=== PATIENT | male | born 1995 | race Caucasian/White ===

== ENCOUNTER 2025-01-07 19:21 | Emergency (ER) | payer SELFPAY ==
[2025-01-07 19:27] VITALS: BP 131/76; PULSE 85; TEMP 36.8; O2SAT 99; BMI 24.4
--- NOTE | 2025-01-07 19:41 | ED_ITS ---
HPI - Medical Clearance General Chief complaint: Medical Clearance Stated complaint: withdrawal from medication Time Seen by Provider: 01/07/25 19:26 Source: patient Mode of arrival: walk-in Limitations: no limitations History of Present Illness HPI Narrative: 29-year-old male to the emergency department chief complaint of withdrawal symptoms after abruptly discontinuing his Paxil and Remeron. Patient reports he was unable to schedule a follow-up visit with his doctor. His prescription ran out. He had no choice but to stop his medications due to running out. He reports a few days after discontinuing he began to develop some mild dizziness, hot flashes and nausea. He is otherwise at his baseline health. He is hoping to restart his prescriptions. Related Information Previous Rx's ?Medication ?Instructions ?Recorded mirtazapine 15 mg tablet 15 mg PO DAILY #30 tabs 01/07/25 paroxetine HCl 20 mg tablet (Paxil) 20 mg PO DAILY #30 tabs 01/07/25 Allergies Allergy/AdvReac Type Severity Reaction Status Date / Time shellfish derived Allergy Intermediate Rash Verified 01/07/25 19:30 Review of Systems ROS Status of ROS 10 or more systems reviewed and unremark able except as noted in history and below PFSH PFSH Social History Little interest or pleasure in doing things: not at all Feeling down, depressed, or hopeless: not at all Exam Narrative Exam Narrative: VITALS: I have reviewed the triage vital signs. GENERAL: Well developed, well appearing adult in no acute distress. NEURO: Alert and oriented. Moves all extremities. Face is symmetric and expre ssive. EYES: PERRL. No scleral icterus or conjunctival injection. No discharge. HENT: Normocephalic, atraumatic. Hearing is grossly intact. Nares grossly patent and without discharge. Mucous membranes moist. NECK: No JVD. Patient moves neck without restriction. CARDIO: Rhythm regular. Normal rate. No murmur, rub, or gallop. Pulses equal bilaterally in the upper and lower extremity. No lower extremity edema. PULM: Lungs clear to auscultation in all lee. No wheezes, rales, or rhonchi. No conversational dyspnea. No splinting, stridor, or accessory muscle use. GI/: Abdomen is soft and non-tender. Normoactive bowel sounds. EXTREMITIES: Symmetric muscle bulk. No joint swelling. No clubbing, cyanosis, or deformity. SKIN: Warm and dry. Normal turgor. No rash or lesions appreciated. PSYCH: Mood, affect, and interaction is appropriate to the setting. Constitutional Vital Signs, click to edit/add: Last Vital Signs Temp 98.2 F 01/07/25 19:27 Pulse 85 01/07/25 19:27 Resp 16 01/07/25 19:27 BP 131/76 01/07/25 19:27 Pulse Ox 99 01/07/25 19:27 O2 Del Method Room Air 01/07/25 19:27 Course Vital Signs Vital signs: Vital Signs Temperature 98.2 F 01/07/25 19:27 Pulse Rate 85 01/07/25 19:27 Respiratory Rate 16 01/07/25 19:27 Blood Pressure 131/76 01/07/25 19:27 Pulse Oximetry 99 01/07/25 19:27 Oxygen Delivery Method Room Air 01/07/25 19:27 Temperature 98.2 F 01/07/25 19:27 Pulse Rate 85 01/07/25 19:27 Respiratory Rate 16 01/07/25 19:27 Blood Pressure 131/76 01/07/25 19:27 Pulse Oximetry 99 01/07/25 19:27 Oxygen Delivery Method Room Air 01/07/25 19:27 MDM - Medical Clearance MDM Narrative Medical decision making narrative: Well-appearing 29-year-old male to the emergency department with chief complaint of withdrawal symptoms after sudden discontinuation of his Paxil and Remeron. Vital stable, the patient is afebrile. His neurologic examination nonfocal. He is not complaining of any psychiatric complaints. He is requesting a refill of his medications. I believe this is reasonable. 30-day supply is given. prescription resent to his pharmacy. First dose is given in the ED. Return precautions were discussed. All questions were answered. The patient was discharged home. Medical Records Attestation: I reviewed the patient's medical records. Discharge Plan Discharge Chief Complaint: Medical Clearance Clinical Impression: Medication withdrawal Patient Disposition: Home, Self-Care Time of Disposition Decision: 19:36 Condition: Good Mode of Transportation: Private Vehicle Prescriptions / Home Meds: New paroxetine HCl [Paxil] 20 mg tablet 20 mg PO DAILY Qty: 30 0RF mirtazapine 15 mg tablet 15 mg PO DAILY Qty: 30 0RF Print Language: Welsh Instructions: Medicine Refill (ED) Additional Instructions: Call the office of your primary care doctor to arrange for follow-up within the above-stated timeframe. Your ED visit was focused on your acute issue and does not replace primary care. You should review your labs, imaging, and diagnoses from this ED visit with your primary care physician. There may be non-emergent/ incidental findings that need further evaluation. You should review your vital signs including blood pressure with your PCP. If you were prescribed medications you should discuss possible side-effects and drug interactions with your pharmacist. Call 911 or go to the nearest Emergency Department if you develop any new or worsening symptoms. Avoid abrupt discontinuation of your medications. This can lead to withdrawal symptoms. Should you wish to discontinue these medications you will need to taper down the dose. You were given a 30-day supply of these medications. Follow-up with your doctor within the next 30 days to continue your script. Referrals: Alan Conrad DO [Primary Care Provider] - 1 week
[2025-01-07] MEDS: PAROXETINE HCL 20 MG TABLET PO (19:53)
[2025-01-07] MEDS: MIRTAZAPINE 15 MG TABLET PO (19:53)
== END 2025-01-07 19:54 | disposition home or self-care (01) ==
PROVIDERS: Emergency Provider Student in an Organized Health Care Education/Training Program; PCP Student in an Organized Health Care Education/Training Program
DX: F19.239 Other psychoactive substance dependence with withdrawal, unspecified (principal)
CPT/HCPCS: 99283

== ENCOUNTER 2025-04-15 17:19 | Emergency (ER) | payer SELFPAY ==
--- OUTSIDE RECORDS SUMMARY | 2024-12-06 05:30 | XMS_ITS ---
Author Organization [facility] Address [address] [place] [address] Care Team Providers Care Aquatics Director Name Role Phone Alan Conrad Primary Care Provider REASON FOR VISIT med check Encounters Encounter Location Date Provider Diagnosis [facility] [address] [place] [address] 12/06/2024 Alan Conrad Plan Of Treatment No Information Progress Notes * SASCHA RAM LDOB: [birth year] (29 yo M)Acc No.[id number]:12/06/2024 Progress Notes Patient: Ayana [address] Provider: Amado Conrad :1995 A ge:29 Y S ex:Male Date:12/06/2024 Address:[address], [place], [id number] Subjective: * Chief Complaints: * 1 . Med check. * Medical History: Objective: * Vitals: Assessment: Plan: * Treatment: * Images: * Electronic signature of Taj Conrad DO on 04/15/2025 at 05:25 PM EDT Sign off status: Pending * Provider: Amado Conrad Date: 12/06/2024 Generated for Adelei ng/Faxing/eTransmitting on: 0 04/15/2025 05:25 PM EDT
--- OUTSIDE RECORDS SUMMARY | 2024-12-07 06:45 | XMS_ITS ---
Author Organization [facility] Address [address] [place] [address] Care Team Providers Care Qa Test Lead Name Role Phone Alan Conrad Primary Care Provider REASON FOR VISIT MED F/U Encounters Encounter Location Date Provider Diagnosis [facility] [address] [place] [address] 12/07/2024 Alan Conrad Plan Of Treatment No Information Progress Notes * SASCHA RAM LDOB: [birth year] (29 yo M)Acc No.[id number]:12/07/2024 Progress Notes Patient: Ayana ROMANS[address] .1 Provider: Amado Conrad :1995 A ge:29 Y S ex:Male Date:12/07/2024 Address:[address], [place], [id number] Subjective: * Chief Complaints: * 1 . MED F/U. * Medical History: Objective: * Vitals: Assessment: Plan: * Treatment: * Images: * Electronic signature of Taj Conrad DO on 04/15/2025 at 05:25 PM EDT Sign off status: Pending * Provider: Amado Conrad Date: 0 12/07/2024 Generated for Adelei ng/Faxing/eTransmitting on: 0 04/15/2025 05:25 PM EDT
[2025-04-15 17:23] VITALS: BP 144/107; PULSE 100; TEMP 36.6; O2SAT 97; BMI 21.5
--- OUTSIDE RECORDS SUMMARY | 2025-04-15 17:26 | XMS_ITS | CCD ---
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 Negative Negative [facility] Protein [Mass/volume] in Ser um or PlasmaOrdered By: Roney Maria on 10-04-2023 Protein [Mass/Vol] 6.5 g/dL 6.4-8.9 [facility] RBC Auto (Bld) [#/Vol]Ordere d By: Roney Maria on 10-04-2023 RBC (Bld) [#/Vol] 5.09 10*6/uL 3.90-5.60 [facility] Serum or plasma albumin/glob ulin mass ratioOrdered By: Roney Maria on 10-04-2023 Albumin/Globulin [Mass ratio] 1.8 {ratio} [facility] Serum or plasma anion gap de terminationOrdered By: Roney Maria on 10-04-2023 Anion gap [Moles/Vol] 11.3 mmol/L 6.0-15.0 [facility] Serum or plasma non-glucuron idated bilirubin measurement (mass/volume)Ordered By: Roney Maria on 10-04-2023 Bilirubin.indirect [Mass/Vol] 0.4 mg/dL [facility] Sodium [Moles/volume] in Ser um or PlasmaOrdered By: Roney Maria on 10-04-2023 Sodium [Moles/Vol] 140 mmol/L 136-145 [facility] Specific gravity Auto test s trip (U) [Rel density]Ordered By: Roney Maria on 10-04-2023 Specific gravity (U) [Rel density] 1.012 1.001-1.030 [facility] Urea nitrogen [Mass/volume] in Serum or PlasmaOrdered By: Roney Maria on 10-04-2023 Urea nitrogen [Mass/Vol] 10 mg/dL 7- [facility] Urine clarity by refractomet ry automatedOrdered By: Roney Maria on 10-04-2023 Clarity Refractometry automated (U) Clear Clear [facility] Urine glucose measurement by automated test strip (mass/volume)Ordered By: Roney Maria on 10-04-2023 Glucose Auto test strip (U) [Mass/Vol] Normal mg/dL Normal [facility] Urine hemoglobin detection b y automated test stripOrdered By: Roney Maria on 10-04-2023 Hemoglobin Auto test strip Ql (U) Negative Negative [facility] Urine leukocyte esterase det ection by automated test stripOrdered By: Roney Maria on 10-04-2023 Leukocyte esterase Auto test strip Ql (U) Negative Negative [facility] Urobilinogen Auto test strip (U) [Mass/Vol]Ordered By: Roney Maria on 10-04-2023 Urobilinogen (U) [Mass/Vol] Normal mg/dL Normal [facility] WBC Auto (Bld) [#/Vol]Ordere d By: Roney Maria on 10-04-2023 WBC (Bld) [#/Vol] 9.9 10*3/uL 4.1-10.5 [facility] pH Auto test strip (U)Ordere d By: Roney Maria on 10-04-2023 pH (U) 5.5 [pH] 5.0-9.0 [facility] Vital Signs Date Time Vital Sign Value Performing Clinician Jameel damon 02-26-2025 16:30-0400 Body height 177.8 cm PHYSICIAN NO [facility] 02-26-2025 16:30-0400 Body temperature 98.4 [degF] PHYSICIAN NO [facility] 02-26-2025 16:30-0400 Body weight 72 kg PHYSICIAN NO [facility] 02-26-2025 16:30-0400 Diastolic blood pressure 64 mm[Hg] PHYSICIAN NO [facility] 02-26-2025 16:30-0400 Heart rate 90 /min PHYSICIAN NO [facility] 02-26-2025 16:30-0400 Respiratory rate 18 /min PHYSICIAN NO [facility] 02-26-2025 16:30-0400 SaO2% (BldA) [Mass fraction] 98 % PHYSICIAN NO [facility] 02-26-2025 16:30-0400 Systolic blood pressure 123 mm[Hg] PHYSICIAN NO [facility] 10-06-2023 10:24-0500 Diastolic blood pressure 64 mm[Hg] PHYSICIAN NO [facility] 10-06-2023 10:24-0500 Heart rate 62 /min PHYSICIAN NO [facility] 10-06-2023 10:24-0500 SaO2% (BldA) [Mass fraction] 100 % PHYSICIAN NO [facility] 10-06-2023 10:24-0500 Systolic blood pressure 108 mm[Hg] PHYSICIAN NO [facility] 10-06-2023 08:01-0500 Body temperature 97.8 [degF] PHYSICIAN NO [facility] 10-06-2023 08:01-0500 Respiratory rate 18 /min PHYSICIAN NO [facility] 10-06-2023 07:59-0500 Body height 177.8 cm PHYSICIAN NO [facility] 10-06-2023 07:59-0500 Body weight 68.9 kg PHYSICIAN NO [facility] 10-04-2023 04:30-0500 Diastolic blood pressure 57 mm[Hg] PHYSICIAN NO [facility] 10-04-2023 04:30-0500 Heart rate 66 /min PHYSICIAN NO [facility] 10-04-2023 04:30-0500 Respiratory rate 18 /min PHYSICIAN NO [facility] 10-04-2023 04:30-0500 SaO2% (BldA) [Mass fraction] 100 % PHYSICIAN NO [facility] 10-04-2023 04:30-0500 Systolic blood pressure 115 mm[Hg] PHYSICIAN NO [facility] 10-04-2023 01:21-0500 Body height 177.8 cm PHYSICIAN NO [facility] 11-26-2023 01:21-0500 Body temperature 98 [degF] PHYSICIAN NO [facility] 10-04-2023 01:21-0500 Body weight 70.9 kg PHYSICIAN NO [facility] 09-03-2022 19:44-0400 Body height 177.8 cm PHYSICIAN NO [facility] 09-03-2022 19:44-0400 Body temperature 98 [degF] PHYSICIAN NO [facility] 09-03-2022 19:44-0400 Body weight 70 kg PHYSICIAN NO [facility] 09-03-2022 19:44-0400 Diastolic blood pressure 64 mm[Hg] PHYSICIAN NO [facility] 09-03-2022 19:44-0400 Heart rate 68 /min PHYSICIAN NO [facility] 09-03-2022 19:44-0400 Respiratory rate 16 /min PHYSICIAN NO [facility] 09-03-2022 19:44-0400 SaO2% (BldA) [Mass fraction] 96 % PHYSICIAN NO [facility] 09-03-2022 19:44-0400 Systolic blood pressure 119 mm[Hg] PHYSICIAN NO [facility] Encounters Encounter Date Encounter Type Care Provider Facility Start: 02-26-2025 End: 02-26-2025 Emergency department patient visit PHYSICIAN NO [facility] Work Phone: Start: 10-06-2023 End: 10-06-2023 Emergency department patient visit PHYSICIAN NO [facility] Work Phone: Start: 10-04-2023 End: 10-04-2023 Emergency department patient visit PHYSICIAN NO [facility] Work Phone: Start: 09-03-2022 End: 09-03-2022 Emergency department patient visit PHYSICIAN NO [facility] Start: 07-03-2020 Patient encounter status PHYSICIAN N O [facility] Procedures Date Procedure Procedure Detail Performing Clinician Start: 10-06-2023 SARS-CoV-2, Influenz a & RSV (PCR) PHYSICIAN NO [facility] Plan of Treatment Date Care Activity Detail Author Patient Education [facility] Work Phone: Patient referral [facility] Work Phone: Payers Date Payer Category Payer Self-pay [id number] Worker's Compensation [id number] Medicaid Medicaid [id number] Medicaid [id number] Private Health Insurance [facility] [id number] Private Health Insurance [id number] Private Health Insurance [employer] [id number] Private Health Insurance [id number] Unknown Regular Auto/Liability [id number] Unknown [id number] Social History Date Type Detail Facility Start: 09-03-2022 End: 10-06-2023 Tobacco smoking status NHIS Never smoked tobacco (finding) [facility] Start: 1995 Sex Assigned At Male F [facility] Start: 10-04-2023 [facility] Start: 02-26-2025 Tobacco smoking stat [facility] Ex-smoker (finding) [facility] Start: 02-26-2025 Sex Male (finding) [facility] Evaluation note Note Date & Type Note Facility Evaluation note No assessment information availa ble [facility] Work Phone: Hospital Discharge instructions Note Date & Type Note Facility Hospital Discharge instructions Additional Instructions Take Carafate as prescribed for abdominal discomfort Zofran as prescribed for nausea vomiting Imodium as described prescribed for diarrhea. Increase your intake of fluids and rest. Follow-up with the PCP for any persistent symptoms in 3 to 5 days. Return here for intractable nausea vomiting despite these measures. [facility] Work Phone: Hospital Discharge instructions Note Date & Type Note Facility Hospital Discharge instructions Additional Instructions If your symptoms return/worsen or you develop any further concerns or symptoms please see your doctor or return to the emergency department immediately. [facility] Work Phone: Hospital Discharge instructions Note Date & Type Note Facility Hospital Discharge instructions Additional Instructions Continue with family physician appointment as scheduled. It is very important that you follow up with your primary care provider in the next 2-3 days unless instructed to do otherwise. If you do not have a primary care provider, you can contact [facility] and ask about being established for primary care services. If you require specialist follow up, such as with an orthopedic physician, battery filler, urologist, or other medical specialty, you should contact the specialty clinic as soon as possible to schedule a follow up appointment. If you are established with a specialist, you can contact your preferred physician for follow up. If you are not already established with the specialist you need, you may have contact information provided to you with these discharge instructions. If you are being prescribed medications, take exactly as prescribed. Antibiotics, if prescribed, should be taken until the entire course is completed. You should not have left over antibiotics. Continue to take any previously prescribed home medications unless instructed otherwise. If you are experiencing fever or mild to moderate pain, you should first take Tylenol or ibuprofen available [id number]. Medications, if prescribed to treat pain from the emergency department, are intended to provide relief for severe pain that is not relieved by other methods of pain relief, you should use these medications cautiously as many are known to cause sedation/sleepiness, increased risk for falls, and other effects such as constipation. If your symptoms worsen please return to the ED or if you have any other concerns [facility] Work Phone: Chief Complaint and Reason for Visit Chief Complaint Med Refill Chief Complaint Nausea, Vomiting Chief Complaint Nausea, Vomiting n/v/d Chief Complaint Admit Date meds need refilled February 26, 2025 4:2 2pm Advance Directives No Advanced Directives Records Found Advance Directive Response Recorded Date/ Time Advance Directives No July 9:05am Advance Directive Response Recorded Date/ Time Advance Directives No July 8:05am Summary Purpose Family History No Family History Records Found Additional Source Comments Care Teams (unrecognized sec tion and content) Team Status: Inactive Member Role Status Dates PHYSICIAN NO FAMILY Primary Care Provider Active Chucho Shen PA-C Emergency Provider Active Team Status: Active Member Role Status Dates PHYSICIAN NO FAMILY Primary Care Provider Active Team Status: Inactive Member Role Status Dates PHYSICIAN NO FAMILY Primary Care Provider Active Roney Maria DO Emergency Provider Active Team Status: Active Member Role Status Dates Services [facility] Primary Care Provider Active Team Status: Inactive Member Role Status Dates Services [facility] Primary Care Provider Active Tylor Montez DO Emergency Provider Active Team Status: Inactive Member Role Status Dates PHYSICIAN NO FAMILY Primary Care Provider Active Start: February 26, 2025 End: February 26, 2025 Miguel Angel Jacobs PA-C Emergency Provider Active Start: February 26, 2025 End: February 26, 2025 Goals (unrecognized section and content) Goals may be documented in a n alternate sectionGoals may be documented in an alternate sectionGoals may be documented in an alternate sectionGoals may be documented in an alternate section (unrecognized sect ion and content) No Status Records Found INFORMATION SOURCE (unrecogn ized section and content) DATE CREATED AUTHOR 03/17/2025 [facility] FOR RECORDS PERTAINING TO PATIENTS WHO ARE OR HAVE BEEN ENROLLED IN A CHEMICAL DEPENDENCY/SUBSTANCEABUSE PROGRAM, SOME INFORMATION MAY BE OMITTED. This clinical summary was aggregated from multiple sources. Caution should be exercised in using it in the provision of clinical care. This summary normalizes information from multiple sources, and as a consequence, information in this document may materially change the coding, format and clinical context of patient data. In addition, data may be omitted in some cases. CLINICAL DECISIONS SHOULD BE BASED ON THE PRIMARY CLINICAL RECORDS. [facility]. provides no warranty or guarantee of the accuracy or completeness of information in this document.
--- NOTE | 2025-04-15 17:45 | ECG_ITS ---
[facility] Test Date: 2025-04-15 Pat Name: SASCHA RAM Department: Room: - Gender: Male Literature Teacher: : 1995 Requested By: [id number] Order Number: [id number] Reading MD: BAM JUNG M.D. Measurements Intervals [place] Rate: 69 P: 84 CA: 170 QRS: 94 QRSD: 88 T: 60 QT: 380 QTc: 399 Interpretive Statements 1100 Sinus rhythm 7102 Moderate right axis deviation 9110 normal ECG Compared to ECG 03/30/2017 06:50:57 Myocardial infarct finding no longer present Electronically Signed On 04-15-2025 18:48:58 EDT by BAM JUNG M.D.
[2025-04-15 17:47] LABS: Basophils Absolute Auto 0.1 10^3/uL (0.0-0.1); Basophils Percent Auto 0.8 % (0.2-2.0); Eosinophils Absolute Auto 0.2 10^3/uL (0.0-0.7); Hemoglobin 16.4 g/dL (14.0-18.0); Immature Granulocytes Abs Auto 0.04 10^3/uL (0.00-0.03); Immature Granulocytes Pct Auto 0.4 % (0.0-0.5); Lymphocytes Percent Auto 29.3 % (20.5-60.0); Mean Corpuscular HGB Conc 34.9 g/dL (29.9-35.2); Mean Corpuscular Hemoglobin 30.7 pg (25.9-34.0); Mean Corpuscular Volume 87.9 fL (80.0-94.0); Mean Platelet Volume 9.8 fL (9.5-13.5); Monocytes Absolute Auto 0.5 10^3/uL (0.3-0.8); Monocytes Percent Auto 4.8 % (1.7-12.0); Neutrophils Absolute Auto 6.4 10^3/uL (1.4-6.5); Neutrophils Percent Auto 62.7 % (43.0-75.0); Platelet Count 254 10^3/uL (150-450); Red Blood Count 5.35 10^6/uL (4.70-6.10); Red Cell Distribution Width 12.6 % (11.0-15.0); White Blood Count 10.2 10^3/uL (4.0-11.0)
[2025-04-15] MEDS: ONDANSETRON 4 MG RAPDIS TABLET SL (17:48)
[2025-04-15 18:02] LABS: Alanine Aminotransferase 26 U/L (16-63); Albumin Globulin Ratio 1.3; Albumin Level 3.9 g/dL (3.4-5.0); Alkaline Phosphatase 79 U/L (46-116); Anion Gap 13.1; Aspartate Amino Transferase 17 U/L (15-37); BUN Creatinine Ratio 11.1; Bilirubin Total 1.1 mg/dL (0.2-1.0); Calcium 8.8 mg/dL (8.5-10.1); Carbon Dioxide 29.6 mmol/L (21.0-32.0); Chloride 104 mmol/L (98-107); Estimated GFR (African America >60 (>=60 mL/min/1.73m^2); Estimated GFR (Non-African Ame >60 (>=60 mL/min/1.73m^2); Globulin 3.1 g/dL; Glucose 131 mg/dL (74-106); Potassium 3.7 mmol/L (3.5-5.1); Sodium 143 mmol/L (136-145)
--- NOTE | 2025-04-15 18:09 | ED.GENADUL1 ---
HPI HPI - General Adult General Chief complaint: Nausea/Vomiting/Diarrhea Stated complaint: VOMITING, SWEATING, REFILL MEDS Time Seen by Provider: 04/15/25 17:22 Source: patient Mode of arrival: walk-in Limitations: no limitations History of Present Illness HPI narrative: Patient is a 29-year-old male who presents to the emergency department today for evaluation of concerns for withdrawal symptoms related to prescription medications. He states he has a history of depression and a TBI and reports he has been on Paxil and mirtazapine. He reports these medications he ran out of the above medications 2 weeks ago and states his symptoms of nausea and intermittent vomiting with feeling diaphoretic began 2 to 3 days after. He denies any fever/chills, chest pain, shortness of breath, abdominal pain, or diarrhea. No urinary symptoms or back/flank pain. He is somewhat a confusing historian and states he moved from [place] 4 years ago but has not yet established primary care locally however mentions he has intermittently seen a provider in [place] that has refilled his medications. Additionally he mentions he has had his medications refilled in the ER. However he currently endorses he does not have established primary or behavioral health care at this time. He denies any SI/HI or hallucinations. Related Data Previous Rx's ?Medication ?Instructions ?Recorded mirtazapine 15 mg tablet 15 mg PO DAILY #30 tabs 01/07/25 paroxetine HCl 20 mg tablet (Paxil) 20 mg PO DAILY #30 tabs 01/07/25 Allergies Allergy/AdvReac Type Severity Reaction Status Date / Time shellfish derived Allergy Intermediate Rash Verified 04/15/25 17:23 Opioid HPI Opioid Management Most Recent Opioid Data: Ur Phencyclidine Scrn, (NEGATIVE) Negative Today, 18:40 Review of Systems ROS Status of ROS 10 or more systems reviewed and unremarkable except as noted in history and below PFSH PFSH Social History Little interest or pleasure in doing things: not at all Feeling down, depressed, or hopeless: not at all Exam Narrative Exam Narrative: Constituational: Awake/ alert, no apparent distress, well hydrated HENMT: normocephalic, external ears normal, moist oral mucous membranes and oropharynx normal Eyes: EOMI and conjunctivae normal Neck: ROM intact Chest: inspection of chest normal Respiratory: Normal respiratory effort, clear to auscultation bilaterally Cardio: regular rate and regular rhythm GI: soft to palpation and non-tender Back: nontender MSK: ROM intact, +NVI Skin: no rashes or petechiae Neuro: no focal deficits Psych: mental status grossly normal, no SI/HI or hallucinations Constitutional Vital Signs, click to edit/add: Last Vital Signs Temp 97.8 F 04/15/25 17:23 Pulse 100 H 04/15/25 17:23 Resp 20 04/15/25 17:23 BP 144/107 H 04/15/25 17:23 Pulse Ox 97 04/15/25 17:23 O2 Del Method Room Air 04/15/25 17:23 Course Vital Signs Vital signs: Vital Signs Temperature 97.8 F 04/15/25 17:23 Pulse Rate 100 H 04/15/25 17:23 Respiratory Rate 20 04/15/25 17:23 Blood Pressure 144/107 H 04/15/25 17:23 Pulse Oximetry 97 04/15/25 17:23 Oxygen Delivery Method Room Air 04/15/25 17:23 Temperature 97.8 F 04/15/25 17:23 Pulse Rate 100 H 04/15/25 17:23 Respiratory Rate 20 04/15/25 17:23 Blood Pressure 144/107 H 04/15/25 17:23 Pulse Oximetry 97 04/15/25 17:23 Oxygen Delivery Method Room Air 04/15/25 17:23 Medical Decision Making MDM Narrative Medical decision making narrative: Patient is a well-appearing 29-year-old male who presented to the emergency department today requesting medication refill of his Paxil and mirtazapine and endorsing that intermittent symptoms of nausea and feeling diaphoretic were related to withdrawal symptoms of the setting last took 2 weeks ago. Initial examination vital signs overall stable. No acute abdominal findings on exam. He initially is denying any SI/HI or hallucinations. He additionally does not appear to be exhibiting any ischemic symptoms and does appear euvolemic on exam. EKG without acute changes. Labs stable and showed no significant leukocytosis, anemia, thrombocytopenia. Electrolytes including renal and hepatic function stable. UA is negative for UTI and urine drug screen for cannabinoids. Patient's history related to outpatient follow-up is somewhat confusing as he had endorsed moving from [place] 4 years ago and not yet establishing primary care locally. He mentions he briefly has seen someone in [place] for refills of his medication however does not endorse the last time he had these refilled by primary care provider. He states he was seen in the ER previously where he had these medications refilled. Overall patient does not have primary care or behavioral health care established. This with the patient that no refills will be provided today due to not having follow-up and establish care and initially patient does not appear to be exhibiting any acute withdrawal symptoms. Was provided resources for [facility] in addition to referrals for local primary care providers to establish care with him. Symptoms of any worsening condition and when to consider reevaluation by the emergency department. Patient verbalized an understanding of this and is agreeable with the plan to be discharged home. Medical Records Medical records reviewed: Yes I reviewed the patient's medical records Lab Data Lab results reviewed: Yes I reviewed the patient's lab results Labs: Lab Results 04/15/25 04/15/25 Range/Units 17:40 18:40 WBC 10.2 (4.0-11.0) 10^3/uL RBC 5.35 (4.70-6.10) 10^6/uL Hgb 16.4 (14.0-18.0) g/dL Hct 47.0 (42.0-54.0) % MCV 87.9 (80.0-94.0) fL MCH 30.7 (25.9-34.0) pg MCHC 34.9 (29.9-35.2) g/dL RDW 12.6 (11.0-15.0) % Plt Count 254 (150-450) 10^3/uL MPV 9.8 (9.5-13.5) fL Neut % (Auto) 62.7 (43.0-75.0) % Lymph % (Auto) 29.3 (20.5-60.0) % Kane % (Auto) 4.8 (1.7-12.0) % Eos % (Auto) 2.0 (0.9-7.0) % Baso % (Auto) 0.8 (0.2-2.0) % Neut # (Auto) 6.4 (1.4-6.5) 10^3/uL Lymph # (Auto) 3.0 (1.2-3.8) 10^3/uL Kane # (Auto) 0.5 (0.3-0.8) 10^3/uL Eos # (Auto) 0.2 (0.0-0.7) 10^3/uL Baso # (Auto) 0.1 (0.0-0.1) 10^3/uL Abs Immat Gran (auto) 0.04 H (0.00-0.03) 10^3/uL Imm/Tot Granulo (auto) 0.4 (0.0-0.5) % Sodium 143 (136-145) mmol/L Potassium 3.7 (3.5-5.1) mmol/L Chloride 104 (98-107) mmol/L Carbon Dioxide 29.6 (21.0-32.0) mmol/L Anion Gap 13.1 BUN 9.0 (7.0-18.0) mg/dL Creatinine 0.81 (0.70-1.30) mg/dL Est GFR ( Amer) >60 (>=60 mL/min/1.73m^2) Est GFR (Non-Af Amer) >60 (>=60 mL/min/1.73m^2) BUN/Creatinine Ratio 11.1 Glucose 131 H (74-106) mg/dL Calcium 8.8 (8.5-10.1) mg/dL Total Bilirubin 1.1 H (0.2-1.0) mg/dL AST 17 (15-37) U/L ALT 26 (16-63) U/L Alkaline Phosphatase 79 (46-116) U/L Total Protein 7.0 (6.4-8.2) g/dL Albumin 3.9 (3.4-5.0) g/dL Globulin 3.1 g/dL Albumin/Globulin Ratio 1.3 Lipase 21.0 (16.0-77.0) U/L Urine Color Lt. yellow (YELLOW) Urine Clarity Clear (CLEAR) Urine pH 7.0 (5.0-9.0) Ur Specific [place] 1.015 (1.005-1.025) Urine Protein Negative (NEG/TRACE) mg/dL Urine Glucose (UA) Negative (NEGATIVE) mg/dL Urine Ketones Negative (NEGATIVE) mg/dL Urine Occult Blood Negative (NEGATIVE) Urine Nitrite Negative (NEGATIVE) Urine Bilirubin Negative (NEGATIVE) Urine Urobilinogen 0.2 (0.2-1.0) EU/dL Ur Leukocyte Esterase Negative (NEGATIVE) Urine Opiates Screen Negative (NEGATIVE) Ur Buprenorphine Scrn Negative (NEGATIVE) Ur Oxycodone Screen Negative (NEGATIVE) Urine Methadone Screen Negative (NEGATIVE) Ur Barbiturates Screen Negative (NEGATIVE) U Tricyclic Antidepress Negative (NEGATIVE) Ur Phencyclidine Scrn Negative (NEGATIVE) Ur Amphetamines Screen Negative (NEGATIVE) U Methamphetamines Scrn Negative (NEGATIVE) U Benzodiazepines Scrn Negative (NEGATIVE) Urine Cocaine Screen Negative (NEGATIVE) U Cannabinoids Screen Positive A (NEGATIVE) ECG Data Attestation: I personally reviewed and interpreted this ECG as follows: (SR with HR 69, no acute/ischemic changes) Discharge Plan Discharge Chief Complaint: Nausea/Vomiting/Diarrhea Clinical Impression: Encounter for medication refill Patient Disposition: Home, Self-Care Prescriptions / Home Meds: No Action paroxetine HCl [Paxil] 20 mg tablet 20 mg PO DAILY Qty: 30 0RF mirtazapine 15 mg tablet 15 mg PO DAILY Qty: 30 0RF Print Language: Citizen [place] Additional Instructions: You are provided contact referrals for behavioral health and PCP follow-up ->Please follow-up with [facility] for refills of your medications and to establish care. Referrals: Physician,Non-Staff, MD [Primary Care Provider] - 1 week
[2025-04-15 18:46] LABS: Bilirubin Urine NEGATIVE (NEGATIVE); Blood Urine NEGATIVE (NEGATIVE); Clarity Urine CLEAR (CLEAR); Color Urine LT. YELLOW (YELLOW); Glucose Urine UA NEGATIVE (NEGATIVE); Ketones Urine NEGATIVE (NEGATIVE); Leukocyte Esterase Urine NEGATIVE (NEGATIVE); Nitrite Urine NEGATIVE (NEGATIVE); Protein Urine NEGATIVE (NEG/TRACE); Specific Gravity Urine 1.015 (1.005-1.025); Urobilinogen Urine 0.2 EU/dL (0.2-1.0)
[2025-04-15 18:47] LABS: Urine Microscopic Indicated NO
[2025-04-15 19:04] LABS: Amphetamine Screen Urine NEGATIVE (NEGATIVE); Barbiturates Screen Urine NEGATIVE (NEGATIVE); Benzodiazepines Screen Urine NEGATIVE (NEGATIVE); Buprenorphine Screen Urine NEGATIVE (NEGATIVE); Cannabinoid Screen Urine POSITIVE (NEGATIVE); Cocaine Screen Urine NEGATIVE (NEGATIVE); Methadone Screen Urine NEGATIVE (NEGATIVE); Methamphetamines Screen Urine NEGATIVE (NEGATIVE); Opiate Screen Urine NEGATIVE (NEGATIVE); Oxycodone Screen Urine NEGATIVE (NEGATIVE); Phencyclidine Screen Urine NEGATIVE (NEGATIVE); Tricyclic Antidepressant Urine NEGATIVE (NEGATIVE)
== END 2025-04-15 19:18 | disposition home or self-care (01) ==
PROVIDERS: Nurse Practitioner; Emergency Provider Emergency Medicine
DX: Z76.0 Encounter for issue of repeat prescription (principal)
CPT/HCPCS: 36415; 80053; 80307; 81003; 83690; 85025; 93005; 99285; Q0162